=== PATIENT | male | born 1995 | race Caucasian/White ===

== ENCOUNTER 2018-03-27 13:09 | Inpatient (IN) | payer BC, OTHER ==
[~2018-03-27] VITALS: Ht 170.2 cm; Wt 58.1 kg
--- NOTE | 2018-03-27 16:45 | NUR ---
Pre-Admission Pt is calm and cooperative. A/O x4 and makes his needs known. Pt endorses history of 1 pint ETOH and 22 ounces of Beer daily. Pt is currently acutely intoxicated and marketing writer is =unable to perform CIWA. VS stable. Pt is appropriate for admission.
--- NOTE | 2018-03-27 17:10 | NUR ---
Admission Pt admitted to [facility] per ambulation. Pt had skin check performed with skin intact. Pt was educated on admit process, provided urine and signed appropriate paperwork. Pt was oriented to facility, room and unit guidelines and rules. Pt provided with educational material in written form and verbally educated on smoking cessation and the importance of continued sobriety. Pt endorses drinking 22 ounces of beer and a pint of Rum daily x3 weeks. Pt was in treatment, first treatment in 09/2017, refuses to name facility and then transitioned to [facility] where he maintained sobriety for 5 months. 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 Pt endorses smoking a pack of cigarettes daily. Pt endorses no PMH, PPH of anxiety and depression. Pt at first denies any home medication, but bottles of Seroquel and Lexapro found in his belongings. Pt endorses the medication, but is unable to tell caption writer why he takes medication. Denies any seizure history. Pt states he is here to get help and to be able to help others. " I don't want anyone else going thru what I did, I want to help others." Pt has been to nursing home for 17 months as a juvenile and about year ago was in nursing home for possession with intent to distribute. Pt has history of being placed on 5150 due to SA at age 19 by overdose, also placed on 5150 as a minor. Pt denies any PCP, psychiatrist or psychologists and states, " I wish." Pt is cooperative, flat affect with depressed mood. A/O x4 and able to make needs known. Pt has a clear speech pattern and linear though process. Vital Signs: BP: P: 104 R: 18 T: 98.4 O2: 96% P: 0/10 Addendum: 03/28/18 at 1416 by SARAI PLUNKETT RN LE: Pt was intoxicated on admit with no signs of withdrawal, aside from tachycardia, which pt indicates is normal for him. Pt admits to drinking prior to admission. Pt also endorses getting tremulous when not drinking, with tremors ceasing when pt drinks. 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 Pt shows insight and states his biggest barriers to maintaining sobriety are his depression, anxiety and boredom. Pt endorses needing to stay involved in program and keeping himself busy to maintain sobriety. Pt also endorses appreciation for his father and grandmother for their continued support. Pt is withdrawn and reports feelings of hopelessness and worthlessness. Pt currently denying SI/HI or A/VH.
[2018-03-27] MEDS ORDERED: ACETAMINOPHEN 325 MG TABLET PO PRN (17:15)
[2018-03-27] MEDS ORDERED: CLONIDINE HCL 0.1 MG TABLET PO PRN (17:15)
[2018-03-27] MEDS ORDERED: THIAMINE HCL 200 MG/2 ML VIAL IM ONE (17:15)
[2018-03-27] MEDS ORDERED: ONDANSETRON ODT 4 MG TAB.RAPDIS SL PRN (17:15)
[2018-03-27] MEDS ORDERED: MIRALAX 17 GM POWD.PACK PO PRN (17:15)
[2018-03-27] MEDS ORDERED: MAGNESIUM HYDROXIDE 30 ML LIQUID UDC PO PRN (17:15)
[2018-03-27] MEDS ORDERED: IBUPROFEN 600 MG TABLET PO PRN (17:15)
[2018-03-27] MEDS ORDERED: MAG HYDROX/AL HYDROX/SIMETH 30 ML LIQUID UDC PO PRN (17:15)
[2018-03-27] MEDS ORDERED: LOPERAMIDE HCL 2 MG CAPSULE PO PRN ×2 (17:15)
[2018-03-27] MEDS ORDERED: LORAZEPAM 1 MG TABLET PO PRN ×2 (17:15)
[2018-03-27] MEDS ORDERED: ONDANSETRON 4 MG/2 ML VIAL IM PRN (17:15)
[2018-03-27] MEDS ORDERED: LORAZEPAM 2 MG/1 ML VIAL IM PRN (17:15)
[2018-03-27 17:32] LABS: *AMPHETAMINE, URINE NEGATIVE (NEGATIVE); *BARBITURATE, URINE NEGATIVE (NEGATIVE); *CANNABINOID, URINE POSITIVE (NEGATIVE); *COCCAINE, URINE NEGATIVE (NEGATIVE); *OPIATE, URINE NEGATIVE (NEGATIVE); *PHENCYCLIDINE SCREEN,URINE NEGATIVE (NEGATIVE)
[2018-03-27] MEDS ORDERED: QUET100T PO (18:17)
[2018-03-27] MEDS ORDERED: ESCI20TA PO (18:17)
--- NOTE | 2018-03-27 18:56 | NUR ---
End of Shift Practicing Md Anesthesiologist admitted 22 year old male to [facility] today, for medical management of ETOH withdrawals. Pt endorses NKA, full code and regular diet. No PMH, PPH of anxiety and depression. Pt denies any seizure history. Will start Ativan taper in am, as pt is currently intoxicated, with no signs or symptoms of withdrawal. Pt denies any symptoms. No PRN medication administered. Pt is A/O x4 and makes his needs known. Linear thought process and clear speech pattern. Pt has a flat affect and depressed mood. Pt is hyper-active and loud at times. Bed in low position with wheels locked and side rails up x2.
--- NOTE | 2018-03-27 19:30 | NUR ---
START OF SHIFT Pt is a 22 y/o male admitted today for ETOH withdrawal. Pt came in intoxicated, CIWAs deferred during day shift and no PRNs administered. Pt will start a 4 day Ativan taper tomorrow, has PRN Ativan available at this time. Upon assessment pt reports he no longer feels intoxicated and presents with anxiety, restlessness, flushed skin, slumped posture, intermittent headache, and agitation at this time. Pt also reports he has difficulty falling asleep. Medications due. Safety measures in place. Call light within reach. Will continue to monitor.
[2018-03-27 20:00] VITALS: BP 132/55
--- NOTE | 2018-03-27 20:00 | NUR ---
CIWA 10 Pt presents with anxiety, restlessness, flushed skin, intermittent headache, and agitation at this time.
[2018-03-27] MEDS: diphenhydrAMINE 50 MG CAPSULE PO PRN (21:39)
--- NOTE | 2018-03-27 21:39 | NUR ---
PRN ATIVAN 2 MG AND BENADRYL ADMINISTRATION CIWA 10. Pt presents with anxiety, flushed skin, restlessness, headache. Pt refuses Motrin at this time. Pt requests sleep aid. Pt states "Last detox I went to I couldn't get a real nights rest for 5 days." Safety measures in place. Call light within reach. Will continue to monitor. Addendum: 03/28/18 at 0020 by KALEIGH COX RN CORRECTION: ATIVAN 1 MG ADMINISTERED
[2018-03-27 21:50] LABS: BASOPHILS % (AUTO) 0.5 % (0.0-2.0); EOSINOPHILS # (AUTO) 0.3 K/uL (0.0-0.7); EOSINOPHILS % (AUTO) 3.9 % (0.0-7.0); HEMATOCRIT 43.7 % (36.7-47.1); HEMOGLOBIN 14.8 g/dL (12.5-16.3); LYMPHOCYTES # (AUTO) 2.1 K/uL (20.0-40.0); LYMPHOCYTES % (AUTO) 29.8 % (20.5-51.5); MEAN CORPUSCULAR HEMOGLOBIN 32.3 uug (23.8-33.4); MEAN CORPUSCULAR HGB CONC 34 g/dL (32.5-36.3); MEAN CORPUSCULAR VOLUME 95.4 fL (73.0-96.2); MONOCYTES # (AUTO) 0.8 K/uL (2.0-10.0); MONOCYTES % (AUTO) 10.9 % (0.0-11.0); NEUTROPHILS # (AUTO) 3.9 K/uL (1.8-8.9); NEUTROPHILS % (AUTO) 54.9 % (38.5-71.5); PLATELET COUNT (AUTO) 290 K/uL (152-348); RED BLOOD CELL COUNT(AUTO) 4.58 MIL/uL (4.06-5.63); WHITE BLOOD COUNT (AUTO) 7.1 K/uL (3.6-10.2)
[2018-03-27 22:22] LABS: BILIRUBIN,TOTAL 0.9 mg/dL (0.2-1.0); CREATININE 1.2 mg/dL (0.6-1.3); MAGNESIUM 1.9 mg/dL (1.8-2.4); TOTAL PROTEIN, SERUM 7.2 g/dL (6.4-8.2)
--- NOTE | 2018-03-27 22:39 | NUR ---
PRN ATIVAN 1 MG AND BENADRYL REASSESSMENT CIWA 9. Pt appears less anxious and fidgety. Pt remains awake, pt states he feels more fatigued. Safety measures in place. Call light within reach. Will continue to monitor. Pt remains awake, pt states he feels more fatigued.
[2018-03-28] VITALS: BP 107/58
--- NOTE | 2018-03-28 | NUR ---
CIWA DEFERRED Pt laying in bed with eyes closed, CIWA deferred, to be assessed when pt is awake per orders. Respirations even and unlabored. Safety measures in place. Call light within reach. Will continue to monitor.
[2018-03-28 04:00] VITALS: BP 113/53
--- NOTE | 2018-03-28 07:07 | NUR ---
END OF SHIFT Pt is a 22 y/o male admitted on 03/27/18 for ETOH withdrawal. Pt starts a 4 day Ativan taper today. Pt presented with anxiety, restlessness, flushed skin, slumped posture, intermittent headache, and agitation. Refused Motrin for headache. PRN Ativan 1 mg and Benadryl administered, effective in S/S of withdrawal as verbalized by pt. Last CIWA 10. Pt slept 7 hours. Intake 1000 ml, void x 2, stool x 0. Safety measures in place. Call light within reach. Pts needs have been met. Endorsed to day shift nurse.
--- NOTE | 2018-03-28 07:30 | NUR ---
Start of Shift Vacuum Cooker Operator received report on 22 year old male admitted to [facility] on 03/27/18 for medical management of ETOH withdrawals. Pt endorses NKA, full code and regular diet. Pt denies PMH, PPH of anxiety and depression. Pt to be started on Ativan taper this am. Pts last recorded CIWA 10, per NOC report. Pt ws administered Ativan(anxiety) and Benadryl(insomnia) on NOC, per report. Vacuum Cooker Operator encounters pt in pts room with pt resting with eyes closed, even and unlabored respirations. Bed in low position with wheels locked and side rails up x2. Will continue to monitor, support and encourage according to plan of care.
--- NOTE | 2018-03-28 08:00 | NUR ---
CIWA 10 Pt is diaphoretic, nauseous, anxious and restless. Will continue to monitor, support and encourage according to plan of care.
[2018-03-28 08:31] VITALS: BP 119/69
[2018-03-28] MEDS ORDERED: TUBERCULIN,PURIF.PROT.DERIV. 5 TU/0.1 ML TEST ID ONE (09:00)
[2018-03-28] MEDS ORDERED: 5 DAY TAPER OF LORAZEPAM -SERENITY PROTOCOL PO PRN (09:00)
[2018-03-28] MEDS: THIAMINE HCL 100 MG TABLET PO SCH (09:08)
[2018-03-28] MEDS: LORAZEPAM 1 MG TABLET PO SCH ×3 (09:08→20:45)
[2018-03-28] MEDS: FOLIC ACID 1 MG TABLET PO SCH (09:08)
[2018-03-28] MEDS: MULTIVITAMINS,THERAPEUTIC TABLET PO SCH (09:08)
--- NOTE | 2018-03-28 12:00 | NUR ---
CIWA 12 Pt is anxious, restless and has some nausea and sweating with chills. Pt with a flat/blunted affect and epressed mood. Pt is minimizing withdrawal symptoms.
[2018-03-28 12:15] VITALS: BP 126/83
[2018-03-28 16:30] VITALS: BP 144/79
--- NOTE | 2018-03-28 16:30 | NUR ---
CIWA 16 Pt is diaphoretic, anxious, restless, complains of headache and nausea. Pt is tremulous. Will continue to monitor, support and encourage according to plan of care.
--- NOTE | 2018-03-28 16:44 | NUR ---
Client was prompted to attend twice daily group counseling sessions.
--- NOTE | 2018-03-28 19:04 | NUR ---
End of Shift Security Analyst provided report on 22 year old male admitted to [facility] on 03/27/18 for medical management of ETOH withdrawals. Pt endorses NKA, full code and regular diet. Pt denies PMH, PPH of anxiety and depression. Pt to be started on Ativan taper this am. Pts last recorded CIWA 16 recorded at 1630. Pt not administered any PRN medications this shift. Pt is diaphoretic, anxious, restless, with nausea and tremors. Pt with linear thought process and clear speech pattern. A/O x4 and makes his needs known. Bed in low position with wheels locked and side rails up x2.
--- NOTE | 2018-03-28 19:30 | NUR ---
START OF SHIFT Pt is a 22 y/o male admitted today for ETOH withdrawal. Pt started a 4 day Ativan taper today, tolerating well. Upon assessment pt presents with anxiety, restlessness, flushed skin, slumped posture, intermittent nausea, intermittent chills, sweats, intermittent headache, unkempt room, and agitation at this time. Pt also reports he has difficulty falling asleep. Medications due. Safety measures in place. Call light within reach. Will continue to monitor.
[2018-03-28 20:00] VITALS: BP 139/80
--- NOTE | 2018-03-28 20:00 | NUR ---
CIWA 11 Pt presents with anxiety, restlessness, flushed skin, intermittent nausea, intermittent chills, sweats, intermittent headache, and agitation.
[2018-03-28] MEDS: diphenhydrAMINE 50 MG CAPSULE PO PRN (20:46)
--- NOTE | 2018-03-28 20:46 | NUR ---
PRN BENADRYL ADMINISTRATION Pt requests sleep aid. Pt states having Benadryl last night was very effective in helping him sleep. Safety measures in place. Call light within reach. Will continue to monitor.
--- NOTE | 2018-03-28 21:46 | NUR ---
LEIGH CONTRERAS REASSESSMENT Pt remains awake, asking to go downstairs to smoke. Pt states, "I'm a little more tired, I guess."
[2018-03-28] MEDS: QUETIAPINE FUMARATE 100 MG TABLET PO SCH (22:36)
--- NOTE | 2018-03-29 | NUR ---
CIWA DEFERRED AND VITALS REFUSED Pt laying in bed with eyes closed, CIWA deferred, to be assessed when pt is awake per orders. Vitals refused. Respirations even and unlabored. Safety measures in place. Call light within reach. Will continue to monitor.
--- NOTE | 2018-03-29 07:06 | NUR ---
END OF SHIFT Pt is a 22 y/o male admitted today for ETOH withdrawal. Pt started a 4 day Ativan taper on 03/28/18, tolerating well. Pt presented with anxiety, restlessness, flushed skin, slumped posture, intermittent nausea, intermittent chills, sweats, intermittent headache, difficulty falling asleep, increased HR, unkempt room, and agitation. Pt went for multiple smoking breaks after administration of PRN Benadryl, pt was restless and anxious. Last CIWA 11. Pt slept 7 hours. Intake 750 ml, void x 1, stool x 0. Safety measures in place. Call light within reach. Pts needs have been met. Endorsed to day shift nurse.
--- NOTE | 2018-03-29 07:35 | NUR ---
START OF SHIFT Endorse rcvd from ongoing nurse, client is in bed, lying on his L side, he is covered with blankets, he sounds asleep, easy to arouse, skin warm to touch, RR 16, even, non-labored. PRN Benadryl 50mg PO for inability to sleep, client slept 7 hrs. last CIWA 11 @ 1999. Seizure precautions. Bed in lowest/locked position. Side rails x 2 up/padded. call light within reach. Will continue to monitor.
[2018-03-29 08:31] VITALS: BP 100/60
[2018-03-29] MEDS: FOLIC ACID 1 MG TABLET PO SCH (09:43)
[2018-03-29] MEDS: THIAMINE HCL 100 MG TABLET PO SCH (09:43)
[2018-03-29] MEDS: LORAZEPAM 1 MG TABLET PO SCH ×4 (09:43→21:32)
[2018-03-29] MEDS: MULTIVITAMINS,THERAPEUTIC TABLET PO SCH (09:43)
[2018-03-29] MEDS: CITALOPRAM 20 MG TABLET PO SCH (09:47)
--- NOTE | 2018-03-29 09:51 | NUR ---
WA 18 Client reports nausea, tremors, sweat noted on face, clammy extremities, anxiety/agitation, pins and needle feeling on both legs, inability to sit still, restless legs, head feels different, and fatigue. Ativan 1mg PO administered. Call light within reach.
[2018-03-29 11:09] LABS: HEPATITIS B SURFACE AG Negative (Negative)
--- NOTE | 2018-03-29 12:12 | NUR ---
Dr. Martinez is in the unit, notified of abnormal EKG ordered by Dr. Rivera for drug interaction, he requested to order another one to re-evaluate EKG. Client notified and verbalized understanding.
[2018-03-29 12:55] VITALS: BP 123/75
--- NOTE | 2018-03-29 13:09 | NUR ---
CIWA 17 Client presents with anxious mood, flat affect, irritable, flushed face, tremulous, clammy skin on all extremities, pins and needle sensation on bilateral lower extremities, restless, and difficulty concentrating. Schedule Ativan 1mg PO administered. Call light within reach. Will continue to monitor.
--- NOTE | 2018-03-29 15:04 | NUR ---
MD Notification EKG results Normal Sinus Rhythm. NNO at this time
[2018-03-29 16:55] VITALS: BP 122/78
--- NOTE | 2018-03-29 17:28 | NUR ---
CIWA 15 Client is irritable, flushed face, tremulous, clammy skin on all extremities, pins and needle sensation on bilateral lower extremities, restless, and difficulty concentrating. Schedule Ativan 1mg PO administered. Call light within reach. Will continue to monitor.
--- NOTE | 2018-03-29 19:16 | NUR ---
END OF SHIFT Endorse client to incoming nurse, client is in bed, a/o x 4, client continues to present with anxiety, agitation, flat affect, clammy skin, tremors, abdominal cramps, fatigue, and difficulty concentrating. Client was compliant with 2/3 group therapy. Client consumes 50% of meals. Adequate PO fluid intake 1400mL, void x 2, stool x 1. Last CIWA 15 @ 1600. Seizure precautions rendered. Call light within reach.
--- NOTE | 2018-03-29 19:30 | NUR ---
START OF SHIFT Pt is a 22 y/o male admitted on 03/27/18 for ETOH withdrawal. Pt is on a 4 day Ativan taper that started on 03/28/18, tolerating well. Last CIWA 15 and no PRNs administered during day shift. Upon assessment pt presents with anxiety, restlessness, sweats, increased HR, depressed affect, agitation, poor appetite, slumped posture. Pt reports trouble falling asleep. Medications due. Safety measures in place. Call light within reach. Will continue to monitor.
[2018-03-29 20:00] VITALS: BP 129/79
--- NOTE | 2018-03-29 20:00 | NUR ---
CIWA 11 Pt presents with anxiety, restlessness, sweats, increased HR, agitation, and poor appetite. Safety measures in place. Call light within reach. Will continue to monitor.
[2018-03-29] MEDS: QUETIAPINE FUMARATE 100 MG TABLET PO SCH (21:00)
[2018-03-29] MEDS: diphenhydrAMINE 50 MG CAPSULE PO PRN (21:31)
--- NOTE | 2018-03-29 21:31 | NUR ---
LEIGH BENADRYL ADMINISTRATION Pt requests sleep aid, has trouble falling asleep. Safety measures in place. Call light within reach. Will continue to monitor.
--- NOTE | 2018-03-29 22:31 | NUR ---
PRN BENADRYL REASSESSMENT Pt laying in bed with eyes closed. Respirations even and unlabored. Safety measures in place. Call light within reach. Will continue to monitor.
--- NOTE | 2018-03-30 07:13 | NUR ---
END OF SHIFT Pt is a 22 y/o male admitted on 03/27/18 for ETOH withdrawal. Pt is on a 4 day Ativan taper that started on 03/28/18, tolerating well. Pt presented with anxiety, restlessness, sweats, increased HR, depressed affect, agitation, poor appetite, slumped posture, and difficulty falling asleep. Scheduled medications and PRN Benadryl administered, effective in S/S of withdrawal as verbalized by pt. Last CIWA 11. Pt slept 5 hours. Intake 500 ml, void x 2, stool x 0. Safety measures in place. Call light within reach. Pts needs have been met. Endorsed to day shift nurse.
--- NOTE | 2018-03-30 07:30 | NUR ---
Start of Shift Frog Shaker received report on 22 year old male admitted to [facility] on 03/27/18 for medical management of ETOH withdrawals. Pt endorses NKA, full code and regular diet. Pt denies PMH, PPH of anxiety and depression. Pt currently on Ativan taper. Pts last recorded CIWA 11, per NOC report. Pt was administered Benadryl(insomnia) on NOC, per report. Frog Shaker encounters pt in pts room with pt resting with eyes closed, even and unlabored respirations noted. Bed in low position with wheels locked and side rails up x2. Will continue to monitor, support and encourage according to plan of care.
--- NOTE | 2018-03-30 08:00 | NUR ---
CIWA 9 Pt is anxious and restless with complaints of nausea and headaches. Will continue to monitor, support and encourage according to plan of care.
[2018-03-30 08:45] VITALS: BP 101/55
[2018-03-30] MEDS: THIAMINE HCL 100 MG TABLET PO SCH (10:06)
[2018-03-30] MEDS: CITALOPRAM 20 MG TABLET PO SCH (10:06)
[2018-03-30] MEDS: LORAZEPAM 1 MG TABLET PO SCH ×3 (10:06→20:50)
[2018-03-30] MEDS: FOLIC ACID 1 MG TABLET PO SCH (10:06)
[2018-03-30] MEDS: MULTIVITAMINS,THERAPEUTIC TABLET PO SCH (10:06)
--- NOTE | 2018-03-30 12:00 | NUR ---
CIWA 8 Pt is anxious and restless. Difficulty sitting still, many trips to patio. " I feel anxious, jittery." Will continue to monitor, support and encourage according to plan of care."
[2018-03-30 12:15] VITALS: BP 138/77
--- NOTE | 2018-03-30 16:00 | NUR ---
CIWA 7 Pt is diaphoretic, anxious and restless. Pt has nausea and a headache. Will continue to monitor, support and encourage according to plan of care.
[2018-03-30 16:58] VITALS: BP 153/54
--- NOTE | 2018-03-30 19:13 | NUR ---
End of Shift Hand Buffer provided report on 22 year old male admitted to [facility] on 03/27/18 for medical management of ETOH withdrawals. Pt endorses NKA, full code and regular diet. Pt denies PMH, PPH of anxiety and depression. Pt currently on Ativan taper. Pts last recorded CIWA 7 recorded at 1630. Pt not administered any PRN medication this shift. Pt is calm and cooperative with linear thought process and clear speech pattern. Pt makes needs known, isolative, withdrawn and guarded. Anxious, restless and nauseous. . Bed in low position with wheels locked and side rails up x2.
--- NOTE | 2018-03-30 19:56 | NUR ---
START OF SHIFT NOTE Rcvd report from outgoing nurse, pt is currently in group. Pt is a 22 y/o male A/O to person, place, time, and purpose. Pt was admitted for medically supervised withdrawal from ETOH. Ptis c/o anxiety and depressed mood. Pt is presenting w/ agitation, sweats, withdrawn mood, lethargy, and flat affect. Pt denies any S/I and H/I. Pt rcvd no PRN medications during previous shift. Last CIWA 7 @ 1600. Call light is within reach. Pt will continue to be moniored and needs met.
[2018-03-30 20:00] VITALS: BP 119/79
--- NOTE | 2018-03-30 20:00 | NUR ---
CIWA ASSESSMENT CIWA 8. Pt is presenting w/ seats, lethargy, axiety, and agitation.
[2018-03-30] MEDS: diphenhydrAMINE 50 MG CAPSULE PO PRN (20:50)
[2018-03-30] MEDS: QUETIAPINE FUMARATE 100 MG TABLET PO SCH (20:50)
--- NOTE | 2018-03-30 20:50 | NUR ---
PRN BENADRYL ADMINISTRATION Benadryl 50mg given for insomnia. V/S: 97.9, 89, 18, 98%, and 119/79. Will reassess pt in 1 hr.
--- NOTE | 2018-03-30 21:50 | NUR ---
PRN BENADRYL REASSESSMENT Pt is in bed w/ his eyes closed. Pt's respirations are unlabored and even.
--- NOTE | 2018-03-31 | NUR ---
CIWA DEFERRED AND V/S REFUSED Pt is in bed w/ his eyes closed. Pt's respirations are even and unlabored.
--- NOTE | 2018-03-31 04:00 | NUR ---
CIWA DEFERRED AND V/S REFUSED Pt is in bed w/ his eyes closed. Pt's respirations are unlabored and even.
--- NOTE | 2018-03-31 07:04 | NUR ---
END OF SHIFT NOTE Endorsed pt to oncoming nurse, pt is currently in his room. Pt is a 22 y/o male A/O to person, place, time, and purpose. Pt was admitted for medically supervised withdrawal from ETOH. Pt is c/o anxiety and depressed mood. Pt is presenting w/ agitation, sweats, withdrawn mood, lethargy, and flat affect. PRN Benadryl 50mg given @ 2049 for sleep, noted effective. Pt's fluid intake was 1,355 ml and he voided 1 time. Pt slept for 6.5 hrs. Last CIWA 8 @ 1999. Call light is within reach.
--- NOTE | 2018-03-31 07:39 | NUR ---
Start of shift note; Received report from night nurse. Patient is a 22 year old male admitted on 03/27/18 for ETOH withdrawal. Patient was placed on 4 day Ativan taper. Patient received PRN Benadryl noted to be effective. Patient slept for 8 hours. Patient presented with anxiety, muscle aches, flat affect and stomach cramps. All safety measures secured. Will continue to monitor patient.
[2018-03-31 08:00] VITALS: BP 127/80
--- NOTE | 2018-03-31 08:00 | NUR ---
CIWA score; Patient's CIWA is 11 manifested by anxiety, diaphoresis, stomach cramps, agitation. Will continue to monitor patient.
[2018-03-31] MEDS: MULTIVITAMINS,THERAPEUTIC TABLET PO SCH (08:49)
[2018-03-31] MEDS: THIAMINE HCL 100 MG TABLET PO SCH (08:49)
[2018-03-31] MEDS: FOLIC ACID 1 MG TABLET PO SCH (08:49)
[2018-03-31] MEDS: LORAZEPAM 1 MG TABLET PO SCH ×2 (08:49→21:01)
[2018-03-31] MEDS: CITALOPRAM 20 MG TABLET PO SCH (08:49)
[2018-03-31 12:00] VITALS: BP 134/80
--- NOTE | 2018-03-31 12:50 | NUR ---
CIWA score; Patient's CIWA continues to be 11 manifested by anxiety, diaphoresis, stomach cramps, agitation. Will continue to monitor patient.
[2018-03-31 16:00] VITALS: BP 118/72
--- NOTE | 2018-03-31 16:37 | NUR ---
CIWA score; Patient's CIWA continues to be 10 manifested by diaphoresis, stomach cramps, agitation but patient appears less anxious. Patient participated in group therapy. Will continue to monitor patient.
--- NOTE | 2018-03-31 18:25 | NUR ---
End of shift note; Patient is AOX4, presented with flushed face, anxiety, diaphoresis, fatigue, tremors and agitation. Patient continues to be on Ativan taper, currently on his last day of taper. Patient's last CIWA score is 10 at 1600. No PRN medication given. Patient remained compliant with treatment plan and medication regime. Medications were effective in reducing withdrawal symptoms. Patient participated in group activities and therapy. All safety measures secured. Met all needs.
--- NOTE | 2018-03-31 19:49 | NUR ---
START OF SHIFT NOTE Rcvd report from outgoing nurse, pt is currently in group therapy. Pt is a 22 y/o male A/O to peron, place, time, and purpose. Pt was admitted for medically supervised withdrawal from ETOH. Pt has been c/o of depressed mood. Pt states they are experiencing any physical s/s of withdrawal. Pt has been presenting w/ flat affect, anxiety, agitation, sweats, fine tremors, and body aches. Pt denies any S/I and H/I. Pt rcvd no PRN medications during previous shift. Last CIWA 10 @ 1600. Call light is within reach. Pt. will continue to be monitored and needs met.
[2018-03-31 20:00] VITALS: BP 127/70
--- NOTE | 2018-03-31 20:01 | NUR ---
CIWA ASSESSMENT CIWA 10. Pt experiencing sweats, fine tremors, anixety, agitation, and body aches.
[2018-03-31] MEDS: QUETIAPINE FUMARATE 100 MG TABLET PO SCH (21:01)
[2018-03-31] MEDS: diphenhydrAMINE 50 MG CAPSULE PO PRN (21:01)
--- NOTE | 2018-03-31 21:01 | NUR ---
PRN BENADRYL ADMINISTRATION Benadryl 50mg given for sleep. Pt c/o insomnia. Will reassess pt in 1 hr.
--- NOTE | 2018-03-31 22:01 | NUR ---
LEIGH CONTRERAS REASSESSMENT Pt is in his room w/ his eyes closed. Pt's respirations are unlabored and even.
--- NOTE | 2018-04-01 00:02 | NUR ---
CIWA DEFERRED AND V/S REFUSED Pt is in bed w/ his eyes closed. Pt's respirations are unlabored and even.
--- NOTE | 2018-04-01 04:01 | NUR ---
CIWA DEFERRED AND V/S REFUSED Pt is in bed w/ his eyes closed. Pt's respirations are unlabored and even.
--- NOTE | 2018-04-01 07:01 | NUR ---
END OF SHIFT NOTE Endorsed pt to oncoming nurse, pt is currently in his room. Pt is a 22 y/o male A/O to peron, place, time, and purpose. Pt was admitted for medically supervised withdrawal from ETOH. Pt continues to c/o of depression. Pt states they are not experiencing any physical s/s of withdrawal. Pt continues presenting w/ flat affect, anxiety, agitation, sweats, fine tremors, and body aches. PRN Benadryl 50mg given @ 2100 for insomnia, noted effective.Pt's fluid intake was 710ml and he voided 1 time. Pt slept for 7 hrs. Last CIWA 10 @ 1999. Call light is within reach.
--- NOTE | 2018-04-01 07:37 | NUR ---
Start of shift note; Received report from night nurse. Patient is a 22 year old male admitted on 03/27/18 for ETOH withdrawal. Patient was placed on 4 day Ativan taper, patient completed 4 day taper and currently under observation for further s/s of withdrawal. Patient received PRN Benadryl noted to be effective per endorsement. Patient slept for 7 hours. Patient presented with anxiety, muscle aches, flat affect and stomach cramps. All safety measures secured. Will continue to monitor patient.
[2018-04-01 08:00] VITALS: BP 108/68
--- NOTE | 2018-04-01 08:00 | NUR ---
CIWA assessment; Patient is AOX4 with current CIWA score of 10 manifested by flushed face, diaphoresis, muscle aches, tremors, depression. Patient denies S/I and H/I. Encouraged patient to participate in group therapy and to apply new coping skills, patient verbalized understanding. Will closely monitor patient.
[2018-04-01] MEDS: THIAMINE HCL 100 MG TABLET PO SCH (08:51)
[2018-04-01] MEDS: MULTIVITAMINS,THERAPEUTIC TABLET PO SCH (08:51)
[2018-04-01] MEDS: FOLIC ACID 1 MG TABLET PO SCH (08:51)
[2018-04-01] MEDS: CITALOPRAM 20 MG TABLET PO SCH (08:51)
[2018-04-01 12:00] VITALS: BP 111/76
--- NOTE | 2018-04-01 12:27 | NUR ---
CIWA assessment; Patient is AOX4, CIWA score of 9 manifested by flushed face, diaphoresis, muscle aches, tremors, depression. Patient denies S/I and H/I. Will closely monitor patient.
[2018-04-01 16:00] VITALS: BP 132/80
--- NOTE | 2018-04-01 16:00 | NUR ---
CIWA assessment; Patient is AOX4, CIWA score of 8 manifested by flushed face, diaphoresis, muscle aches, tremors. Patient denies S/I and H/I. Will closely monitor patient.
--- NOTE | 2018-04-01 16:43 | NUR ---
Client was prompted to attend group counseling sessions.
--- NOTE | 2018-04-01 18:39 | NUR ---
End of shift note; Patient is AOX4, presented with flushed face, anxiety, diaphoresis, fatigue, tremors and agitation. Patient's last CIWA score is 8 at 1600. No PRN medication given. Patient remained compliant with treatment plan and medication regime. Medications were effective in reducing withdrawal symptoms. Patient participated in group activities and therapy. Patient is medically cleared for discharge tomorrow per MD. All safety measures secured. Met all needs.
[2018-04-01] MEDS ORDERED: DIPH50CA37 PO (19:16)
[2018-04-01] MEDS ORDERED: CITA20TA19 PO (19:16)
--- NOTE | 2018-04-01 19:54 | NUR ---
START OF SHIFT NOTE Rcvd report from outgoing nurse, pt is currently in group therapy. Pt is a 22 y/o male A/O to person, place, time, and purpose. Pt was admitted for medically supervised withdrawal from ETOH. Pt has been c/o depression, but denies S/I and H/I. Pt has been presenting w/ anxiety, flat affect, and agitation. Pt rcvd no PRN medications during the previous shift. Pt is being discharged on 04/02/18 and continuing treatment at [facility]. Last CIWA 8 @ 1600. Call light is within reach. Pt will continue to be monitored and needs met.
[2018-04-01 20:00] VITALS: BP 99/75
--- NOTE | 2018-04-01 20:00 | NUR ---
CIWA ASSESSMENT CIWA 8. Pt presenting w/ moderate anxiety and agitation/fidgetiness.
[2018-04-01] MEDS: QUETIAPINE FUMARATE 100 MG TABLET PO SCH (22:21)
[2018-04-01] MEDS: diphenhydrAMINE 50 MG CAPSULE PO PRN (22:21)
--- NOTE | 2018-04-01 22:21 | NUR ---
PRN BENADRYL ADMINISTRATION Benadryl 50mg given for sleep. Pt c/o of insomnia. V/S stable. Will reassess pt in 1 hr.
--- NOTE | 2018-04-01 23:21 | NUR ---
LE[facility]ERAS REASSESSMENT Pt is in his bed w/ his eyes closed. Pt's respirations are unlabored and even.
--- NOTE | 2018-04-02 | NUR ---
CIWA DEFERRED AND V/S REFUSED Pt is in bed w/ his eyes closed. Pt's respirations are unlabored and even.
--- NOTE | 2018-04-02 04:01 | NUR ---
CIWA DEFERRED AND V/S REFUSED Pt is in bed w/ his eyse closed. Pt's respirations are unlabored and even.
--- NOTE | 2018-04-02 07:06 | NUR ---
END OF SHIFT NOTE Endorsed pt to oncoming nurse, pt is currently in his room. Pt is a 22 y/o male A/O to person, place, time, and purpose. Pt was admitted for medically supervised withdrawal from ETOH. Pt has been c/o depression, but denies S/I and H/I. Pt has been presenting w/ anxiety, flat affect, and agitation. PRN Bendryl 50mg given for sleep, noted effective. Pt is being discharged today and continuing treatment at [facility]. Pts fluid intake was 500ml, he voided 1 time, and had 1 BM. Pt slept for 6.5hrs. Last CIWA 8 @ 1999. Call light is within reach.
[2018-04-02 08:00] VITALS: BP 128/89
--- NOTE | 2018-04-02 08:02 | NUR ---
START OF SHIFT NOTE Received report from night nurse 22 year old male admitted for ETOH withdrawal and patient completed his Ativan taper tolerated well. Per endorsement patient received PRN Benadryl effective per night nurse, last CIWA-8, slept for 6 hours. Received patient alert awake oriented x4 in stable condition. Patient requested to go down for smoke, denies any pain or discomfort. Patient is motivated to go to treatment and stay sober. All safety measures in place, call light within reach. Will continues to monitor.
[2018-04-02] MEDS: CITALOPRAM 20 MG TABLET PO SCH (08:29)
[2018-04-02] MEDS: THIAMINE HCL 100 MG TABLET PO SCH (08:29)
[2018-04-02] MEDS: MULTIVITAMINS,THERAPEUTIC TABLET PO SCH (08:29)
[2018-04-02] MEDS: FOLIC ACID 1 MG TABLET PO SCH (08:29)
--- NOTE | 2018-04-02 09:34 | NUR ---
DISCHARGE NOTE Patient admitted for ETOH withdrawal and completed his Ativan taper tolerated well. Patient denies any SI/HI. Vital signs WNL. All discharge paper work completed signed and dated. Patient discharge to [facility] in stable condition on 04/02/18 at 0934. All belongings returned to the patient including medications and prescriptions.
== END 2018-04-02 09:34 | disposition other institution (70) | DRG 895 ==
LOC: SRC 16:13
PROVIDERS: ADMIT Family Medicine Addiction Medicine; ATTEND Family Medicine Addiction Medicine
PROC: HZ2ZZZZ Detoxification Services for Substance Abuse Treatment (ICD-10-PCS; principal; 2018-03-27)
PROC: HZ41ZZZ Group Counseling for Substance Abuse Treatment, Behavioral (ICD-10-PCS; 2018-03-28)
PROC: HZ31ZZZ Individual Counseling for Substance Abuse Treatment, Behavioral (ICD-10-PCS; 2018-03-29)
DX: F10.239 Alcohol dependence with withdrawal, unspecified (principal); F33.1 Major depressive disorder, recurrent, moderate; Y90.9 Presence of alcohol in blood, level not specified; F17.210 Nicotine dependence, cigarettes, uncomplicated; G47.00 Insomnia, unspecified; F41.9 Anxiety disorder, unspecified; F12.90 Cannabis use, unspecified, uncomplicated; Z91.5 Personal history of self-harm; Z81.8 Family history of other mental and behavioral disorders; Z79.899 Other long term (current) drug therapy; Y90.2 Blood alcohol level of 40-59 mg/100 ml
CPT/HCPCS: 36415; 70030-TC; 80307; 80349; 83690; 83735; 85025; 86592; 86705; 86803; 87340; 87806; 93005; A4663; G0480; J3411; Q0163